=== PATIENT | male | born 1960 | race Caucasian/White ===

== ENCOUNTER 2020-09-02 15:28 | Outpatient (REF) | payer BC, SELFPAY ==
--- NOTE | ~2020-09-02 | US_ITS ---
EXAMINATION: US RETROPERITONEAL LIMITED (RENAL ONLY) CLINICAL INFORMATION: Nephrolithiasis. COMPARISON: None TECHNIQUE: Real-time imaging of the kidneys. FINDINGS: RIGHT KIDNEY: 11.9 x 7.4 x 7.4 cm (SAG x AP x TRV). The kidney is normal in size, contour, and echogenicity. Renal cortical thickness is normal. No hydronephrosis. There is anechoic cyst in midpole/lower pole complex measuring 7.4 x 7.3 8.7 cm. There is an echogenic stone in midpole measuring 0.51 x 0.46 x 1.4 cm. LEFT KIDNEY: 11.3 x 6.4 x 6.6 cm (SAG x AP x TRV). The kidney is normal in size and contour. Renal cortical thickness is normal. No calculi or focal parenchymal lesions. No hydronephrosis. US/US renal BI IMPRESSION: Mid to lower pole complex cyst and echogenic nonobstructive stone midpole right kidney.
== END 2020-09-02 15:29 | disposition home or self-care (01) ==
LOC: HO.HMGCX 15:28
PROVIDERS: Visit Provider Urology
DX: N20.0 Calculus of kidney (principal)
CPT/HCPCS: 76775